=== PATIENT | female | born 1990 | race Caucasian/White ===

== ENCOUNTER 2018-05-21 17:50 | Emergency (ER) | payer OTHER ==
[2018-05-21] MEDS ORDERED: NS 1,000 ML IV ONE (18:26)
[2018-05-21] MEDS ORDERED: LOPERAMIDE HCL 1 MG/5 ML UDL PO ONE (18:27)
--- NOTE | 2018-05-21 18:30 | EDPHY ---
H & P Stated Complaint: diarrhea, shky, near syncope Time Seen by Provider: 05/21/18 18:15 HPI/ROS: CHIEF COMPLAINT: Bloody diarrhea HISTORY OF PRESENT ILLNESS: Patient is a 28-year-old female with a history of lupus who is on azathioprine. She comes to the emergency department complaining of 3 days of diarrhea that today's turned bloody. She describes it as red blood. She does have a history of hemorrhoids as well but has not noticed recently. No fever. No vomiting. No abdominal pain. She has a history of hysterectomy and cholecystectomy. She also has a history of low blood pressure and takes Milrinone 3 times a day. Her typical blood pressure is 80 systolic. She states that today it was 140 systolic and this also concerned her. No headache. No chest pain. No shortness of breath. Severity: Severe Modifying factors: No improvement with ibuprofen REVIEW OF SYSTEMS: Constitutional: denies: chills, fever, recent illness, recent injury EENTM: denies: blurred vision, double vision, nose congestion Respiratory: denies: cough, shortness of breath Cardiac: denies: chest pain, irregular heart rate, lightheadedness, palpitations Gastrointestinal/Abdominal: See HPI denies: abdominal pain, nausea, vomiting Genitourinary: denies: dysuria, frequency, hematuria, pain Musculoskeletal: denies: joint pain, muscle pain Skin: denies: lesions, rash, jaundice, bruising Neurological: denies: headache, numbness, paresthesia, tingling, dizziness, weakness Hematologic/Lymphatic: denies: blood clots, easy bleeding, easy bruising Immunologic/allergic: denies: HIV/AIDS, transplant 10 systems reviewed and negative except as noted EXAM: GENERAL: Well-appearing, thin and in no acute distress. HEAD: Atraumatic, normocephalic. EYES: Pupils equal round and reactive to light, extraocular movements intact, sclera anicteric, conjunctiva are normal. ENT: TMs normal, nares patent, oropharynx clear without exudates. Moist mucous membranes. NECK: Normal range of motion, supple without lymphadenopathy or JVD. LUNGS: Breath sounds clear to auscultation bilaterally and equal. No wheezes rales or rhonchi. HEART: Regular rate and rhythm without murmurs, rubs or gallops. ABDOMEN: Soft, nontender, normoactive bowel sounds. No guarding, no rebound. No masses appreciated. Rectal: Performed with nurse Sunshine in the room. Empty vault, no visible hemorrhoids. Nonbloody. BACK: No CVA tenderness, no spinal tenderness, step-offs or deformities EXTREMITIES: Normal range of motion, no pitting or edema. No clubbing or cyanosis. NEUROLOGICAL: Cranial nerves II through XII grossly intact. Normal speech, normal gait. 5/5 strength, normal movement in all extremities, normal sensation , normal reflexes PSYCH: Normal mood, normal affect. SKIN: Warm, dry, normal turgor, no visible rashes or lesions. Source: Patient Exam Limitations: No limitations - Personal History LMP (Females 10-55): Hysterectomy Current Tetanus/Diphtheria Vaccine: Yes Current Tetanus Diphtheria and Acellular Pertussis (TDAP): Yes - Medical/Surgical History Hx Asthma: No Hx Chronic Respiratory Disease: No Hx Diabetes: No Hx Cardiac Disease: No Hx Renal Disease: No Hx Cirrhosis: No Hx Alcoholism: No Hx HIV/AIDS: No Hx Splenectomy or Spleen Trauma: No Other PMH: lupus, hysterectomy, orthostatic hypotension, jeanne, R breast lumpectomy, hemorrhoids - Family History Significant Family History: No pertinent family hx - Social History Smoking Status: Never smoked Alcohol Use: Sober Drug Use: None Constitutional: Initial Vital Signs Temperature (C) 37.4 C 05/21/18 18:09 Heart Rate 99 05/21/18 18:09 Respiratory Rate 16 05/21/18 18:09 Blood Pressure 108/80 05/21/18 18:09 O2 Sat (%) 96 05/21/18 18:09 O2 Delivery Mode Room Air Allergies/Adverse Reactions: nitrofurantoin [From Macrobid] Allergy (Verified 05/21/18 18:07) Home Medications: Medication Instructions Recorded Azathioprine Sodium 05/21/18 Midodrine HCl 05/21/18 methylPREDNISolone [Medrol Dose 1 each PO AD #1 ea 05/21/18 Mauricio] Medical Decision Making ED Course/Re-evaluation: 7:30 p.m. the patient is feeling well after hydration. Blood pressure has decreased appropriately. She has not yet been able to provide a stool sample. We discussed her lab work which is reassuring. 8:30 p.m. the patient is eager to go home. She still has not yet been able to provide a stool sample. She will take about get home. She declines further workup at this time. She is requesting prescription for Medrol Dosepak stating this usually helps with her flares. Differential Diagnosis: Partial list of the Differential diagnosis considered include but were not limited to; diarrhea, lupus flare, hemorrhoid and although unlikely based on the history and physical exam, I also considered ulcer, diverticulitis, obstruction, ischemia. I discussed these differential diagnoses and the plan with the patient as well as the usual and expected course. The patient understands that the diagnosis is provisional and that in medicine we are not always correct and that further workup is often warranted. Usual and customary warnings were given. All of the patient's questions were answered. The patient was instructed to return to the emergency department should the symptoms at all worsen or return, otherwise to followup with the physician as we discussed. - Data Points Laboratory Results: Laboratory Results 05/21/18 18:20 05/21/18 18:20 Medications Given: Discontinued Medications Sodium Chloride (Ns) 1,000 mls @ 0 mls/hr IV EDNOW ONE; Wide Open PRN Reason: Protocol Stop: 05/21/18 18:27 Last Admin: 05/21/18 18:34 Dose: 1,000 mls Loperamide HCl (Imodium Oral Liquid) 2 mg PO ONCE ONE Stop: 05/21/18 18:28 Last Admin: 05/21/18 18:51 Dose: Not Given Loperamide HCl ( Imodium) 2 mg PO EDNOW ONE Stop: 05/21/18 18:46 Last Admin: 05/21/18 18:50 Dose: 2 mg Methylprednisolone (Medrol) 8 mg PO EDNOW ONE Stop: 05/21/18 19:16 Last Admin: 05/21/18 19:37 Dose: 8 mg Departure - Departure Disposition: Home, Routine, Self-Care Clinical Impression: Diarrhea Qualifiers: Diarrhea type: unspecified type Qualified Code(s): R19.7 - Diarrhea, unspecified Condition: Fair Instructions: Acute Diarrhea (ED) Referrals: NONE *PRIMARY CARE P,. [Primary Care Provider] - As per Instructions Prescriptions: methylPREDNISolone [Medrol Dose Mauricio] 1 each PO AD #1 ea
[2018-05-21 18:36] LABS: PLATELET COUNT 227 10^3/uL (150-400)
[2018-05-21] MEDS ORDERED: LOPERAMIDE HCL 2 MG CAP PO ONE (18:45)
[2018-05-21] MEDS ORDERED: methylPREDNISolone 4 MG TAB PO ONE (19:15)
[2018-05-21 20:40] VITALS: BP 102/69
== END 2018-05-21 21:06 | disposition home or self-care (01) ==
DX: R19.7 Diarrhea, unspecified (principal); K92.1 Melena; M32.9 Systemic lupus erythematosus, unspecified; E86.9 Volume depletion, unspecified